=== PATIENT | male | born 1980 | race Caucasian/White ===

== ENCOUNTER 2022-03-16 14:34 | Outpatient (CLI) | payer OTHER, SELFPAY ==
[2022-03-16 15:00] LABS: Basophils Percent Auto 0.7 % (0.0-3.0); Eosinophils Percent Auto 4.2 % (0.0-7.0); Hematocrit 42.6 % (37.0-53.0); Hemoglobin* 14.9 gm/dL (13.5-17.5); Immature Granulocytes Pct Auto 0.2 %; Lymphocytes Percent Auto 9.2 % (20-44); Mean Corpuscular HGB Conc 35 gm/dL (32-36); Mean Corpuscular Hemoglobin 32 pg (26-34); Mean Corpuscular Volume 91 fL (80-100); Monocytes Percent Auto 14.8 % (0.0-11.0); Neutrophils Percent Auto 70.9 % (42.0-72.0); Platelet Count* 214 K/uL (140-440); RDW Coefficient of Variation % 12.6 % (11.5-15.5); Red Blood Count 4.66 m/uL (4.30-5.90); White Blood Count* 4.26 K/uL (4.50-11.00)
[2022-03-16 15:13] LABS: Slide Review Reflex No
[2022-03-16 15:57] LABS: Aspartate Amino Transferase* 48 U/L (12-35); Cholesterol* 232 mg/dL (90-199); Triglycerides* 224 mg/dL (40-149)
[2022-03-16 15:58] LABS: HDL Cholesterol* 84 mg/dL (>=40); LDL Cholesterol Calculated 103 mg/dL (<100)
== END 2022-03-16 14:35 | disposition home or self-care (01) ==
PROVIDERS: PCP Family Medicine
DX: M06.9 Rheumatoid arthritis, unspecified (principal)
CPT/HCPCS: 36415; 80061; 84450; 85025

== ENCOUNTER 2022-11-01 14:38 | Outpatient (CLI) | payer OTHER, SELFPAY ==
[2022-11-01 15:41] VITALS: BP 144/84; PULSE 115; RESP 16
--- NOTE | 2022-11-01 22:26 | W.PM.STED ---
Stress Test Note Date Date Seen: 11/01/22 Date of test: 11/01/22 Providers Primary care provider: Roshan Garcia Stress test physician: Rosemary Lopes Stress Test Note Stress test ordered: Stress Echo Indication for test: Coronary artery disease, positive CT calcium scan Stress test medicine: None Results discussion: Resting EKG: Sinus rhythm, 70 beats per minute. Resting blood pressure: 124/92 stress test: Patient exercised to 10 minutes 2 seconds, stopping due to reaching heart rate an as well as exercise capacity. This was equivalent to 11.7 Mets. Get a maximum heart rate of 179 beats per minute which was 101% of a maximally predicted heart rate calculated to be 177, note target heart rate was 150. Had a maximal blood pressure 164/82 during exercise. Rate pressure product was 23,780. No ischemia or arrhythmia noted. Patient had no concerning chest symptomatology. Echo images are pending to couple this for a full formal diagnostic. Impression: Subjectively negative, objectively negative EKG portion of this stress test. Follow up suggested: Await echo images to couple this for a full formal diagnostic. Did discuss with patient given his high risk profile with the high calcium score in what he stated was an LAD distribution, would have low threshold to refer this patient for ongoing cardiology management and cardiology following this patient. Patient discharged to home in stable condition. Will get the final report from his primary provider.
== END 2022-11-01 15:52 | disposition home or self-care (01) ==
LOC: STRESS 14:39
PROVIDERS: PCP Family Medicine; Visit Provider Family Medicine
DX: I25.10 Atherosclerotic heart disease of native coronary artery without angina pectoris (principal); I10 Essential (primary) hypertension; E78.5 Hyperlipidemia, unspecified
CPT/HCPCS: 93016; 93325; 93351

== ENCOUNTER 2023-01-18 08:20 | Outpatient (CLI) | payer OTHER, SELFPAY | END 2023-01-18 08:21 | disposition home or self-care (01) | LOC: NFLDREF 01-23 05:22 | PROVIDERS: PCP Family Medicine; Referring Provider Family Medicine; Visit Provider Family Medicine | DX: E78.5 Hyperlipidemia, unspecified (principal); E87.8 Other disorders of electrolyte and fluid balance, not elsewhere classified; I10 Essential (primary) hypertension; R79.89 Other specified abnormal findings of blood chemistry | CPT/HCPCS: 80053; 80061; 84270; 84402; 84403; 84443 ==

== ENCOUNTER 2023-05-20 17:11 | Outpatient (REF) | payer OTHER, SELFPAY ==
[2023-05-20 17:23] LABS: Basophils Percent Auto 0.5 % (0.0-3.0); Eosinophils Percent Auto 3.4 % (0.0-7.0); Hematocrit 44.6 % (37.0-53.0); Hemoglobin* 15.4 gm/dL (13.5-17.5); Immature Granulocytes Pct Auto 0.2 %; Lymphocytes Percent Auto 12.4 % (20-44); Mean Corpuscular HGB Conc 35 gm/dL (32-36); Mean Corpuscular Hemoglobin 32 pg (26-34); Mean Corpuscular Volume 92 fL (80-100); Monocytes Percent Auto 16.3 % (0.0-11.0); Neutrophils Percent Auto 67.2 % (42.0-72.0); Platelet Count* 231 K/uL (140-440); Red Blood Count 4.85 m/uL (4.30-5.90); White Blood Count* 4.42 K/uL (4.50-11.00)
[2023-05-20 17:25] LABS: Aspartate Amino Transferase* 71 U/L (12-35)
[2023-05-20 17:26] LABS: Alanine Aminotransferase* 79 U/L (4-50); Slide Review Reflex No
== END 2023-05-20 17:12 | disposition home or self-care (01) ==
LOC: NPINS 17:11
PROVIDERS: PCP Family Medicine
DX: M06.9 Rheumatoid arthritis, unspecified (principal)
CPT/HCPCS: 84450; 84460; 85025

== ENCOUNTER 2024-02-11 08:54 | Outpatient (CLI) | payer OTHER, SELFPAY | END 2024-02-11 08:55 | disposition home or self-care (01) | PROVIDERS: PCP Family Medicine; Visit Provider Family Medicine | DX: Z00.00 Encounter for general adult medical examination without abnormal findings (principal); E78.00 Pure hypercholesterolemia, unspecified; E78.5 Hyperlipidemia, unspecified; I10 Essential (primary) hypertension; R53.83 Other fatigue; I25.10 Atherosclerotic heart disease of native coronary artery without angina pectoris; R79.89 Other specified abnormal findings of blood chemistry | CPT/HCPCS: 80053; 80061; 84270; 84402; 84403 ==